=== PATIENT | male | born 1960 | race Caucasian/White ===

== ENCOUNTER 2017-04-27 15:33 | Emergency (ER) | payer MEDICAID ==
[~2017-04-27] VITALS: Ht 175.3 cm; Wt 71.7 kg
[~2017-04-27 15:33] MED LIST: AMLO5TAB2 PO; ASCO500T9 PO; CADE40GE2 TOP; GLIP5TAB13 PO; Metformin Hcl PO; PANT40TA2 PO; RXVAN XX; SITA50TA PO; Silver Sulfadiazine TP; ZINC220C8 PO
[2017-04-27 16:52] LABS: *BILIRUBIN,URIN NEGATIVE (NEGATIVE); *BLOOD, URINE Trace-intact (NEGATIVE); *CLARITY,URINE CLEAR (CLEAR); *COLOR,URINE YELLOW (YELLOW); *KETONES,URINE 3+ (NEGATIVE); *PROTEIN,URINE NEGATIVE (NEGATIVE); *UROBILINOGEN,URINE 0.2 E.U./dl (NORMAL); LEUKOCYTE ESTERASE ,URINE NEGATIVE (NEGATIVE); NITRITE, URINE NEGATIVE (NEGATIVE); PH,URINE 5.5 (5.0-8.0)
[2017-04-27 16:53] LABS: BASOPHILS % (AUTO) 0.4 % (0.0-2.0); EOSINOPHILS # (AUTO) 0.1 K/uL (0.0-0.7); EOSINOPHILS % (AUTO) 1.2 % (0.0-7.0); HEMATOCRIT 47.3 % (40-50); HEMOGLOBIN 16.4 G/DL (14.0-18.0); LYMPHOCYTES # (AUTO) 0.7 K/UL (0.8-4.8); LYMPHOCYTES % (AUTO) 9.7 % (20.5-51.5); MEAN CORPUSCULAR HEMOGLOBIN 28.2 UUG (27.0-31.0); MEAN CORPUSCULAR HGB CONC 35 g/dL (32.0-37.0); MEAN CORPUSCULAR VOLUME 81.1 FL (82.0-92.0); MONOCYTES # (AUTO) 0.3 K/UL (0.1-1.30); MONOCYTES % (AUTO) 4.3 % (0.0-11.0); NEUTROPHILS # (AUTO) 6.3 K/UL (1.8-8.9); NEUTROPHILS % (AUTO) 84.4 % (38.5-71.5); PLATELET COUNT (AUTO) 182 K/UL (150-450); RED BLOOD CELL COUNT(AUTO) 5.83 MIL/UL (4.7-6.1); WHITE BLOOD COUNT (AUTO) 7.4 K/UL (4.0-11.2)
[2017-04-27 16:55] LABS: UGLUCOSE 2+ (NEGATIVE)
[2017-04-27 16:56] LABS: ALANINE AMINOTRANSFERASE 19 U/L (16-63); ALKALINE PHOSPHATASE 72 U/L (50-136); ASPARTATE AMINOTRANSFERASE 13 U/L (15-37); BILIRUBIN,DIRECT 0.2 mg/dL (0.0-0.2); CARBON DIOXIDE 26 mmol/L (21-32); CHLORIDE 102 mmol/L (98-107); POTASSIUM 4.1 mmol/L (3.5-5.1); UREA NITROGEN, BLOOD 12 mg/dL (7-18)
[2017-04-27 16:57] LABS: ETHANOL < 3 MG/DL (0-0)
[2017-04-27 17:02] LABS: ACETAMINOPHEN < 2.0 ug/mL (10-30); GLUCOSE 485 mg/dL (74-106)
[2017-04-27 17:09] LABS: BACTERIA,URINE NONE SEEN /HPF (NONE SEEN); RBC,URINE NONE SEEN /HPF (0-3); SQUAMOUS EPITHELIAL CELL,UR FEW /HPF (NONE SEEN)
[2017-04-27 17:16] LABS: *AMPHETAMINE, URINE NEGATIVE (NEGATIVE); *BARBITURATE, URINE NEGATIVE (NEGATIVE); *CANNABINOID, URINE NEGATIVE (NEGATIVE); *COCCAINE, URINE NEGATIVE (NEGATIVE); *OPIATE, URINE NEGATIVE (NEGATIVE); *PHENCYCLIDINE SCREEN,URINE NEGATIVE (NEGATIVE)
[2017-04-27] MEDS: INSULIN REGULAR, HUMAN 1,000 UNITS/10 ML VIAL SUBCUT ONE (17:16)
[2017-04-27] MEDS ORDERED: INSULIN REGULAR, HUMAN 300 UNIT/3 ML VIAL ONE (17:21)
[2017-04-27 17:40] LABS: THYROID STIMULATING HORMONE 1.064 mIU/mL (0.358-3.740)
--- NOTE | 2017-04-27 17:44 | NUR ---
Medically cleared by Dr Hu. Gabino Shin is here to evaluate patient.
--- NOTE | 2017-04-27 18:33 | NUR ---
Gabino Shin cleared the patient to go home. Patient's girlfriend is at bedside. Patient discharged to home in stable conditon. Written and verbal after care instructions given to patient and girlfriend. Patient and girlfriend verbalized understanding of instructions.
== END 2017-04-27 18:35 | disposition home or self-care (01) ==
LOC: ER 16:30
DX: F32.9 Major depressive disorder, single episode, unspecified (principal); Z88.0 Allergy status to penicillin
CPT/HCPCS: 36415; 70030-TC; 70450; 71010; 80307; 83605; 84443; 85025; 85730; 87040; 87086; 93005; A4663; G0480; G0480-TC; J1815

== ENCOUNTER 2017-05-04 07:27 | Emergency (ER) | payer OTHER ==
[~2017-05-04] VITALS: Ht 175.3 cm; Wt 71.7 kg
[2017-05-04 08:03] LABS: *BLOOD, URINE 3+ (NEGATIVE); *CLARITY,URINE CLOUDY (CLEAR); *COLOR,URINE RED (YELLOW); *KETONES,URINE 4+ (NEGATIVE); LEUKOCYTE ESTERASE ,URINE TRACE (NEGATIVE); NITRITE, URINE NEGATIVE (NEGATIVE); PH,URINE 5.5 (5.0-8.0)
[2017-05-04 08:07] LABS: *BILIRUBIN,URIN 1+ (NEGATIVE); *PROTEIN,URINE 3+ (NEGATIVE); UGLUCOSE 2+ (NEGATIVE)
[2017-05-04 08:12] LABS: BACTERIA,URINE FEW /HPF (NONE SEEN); RBC,URINE TNTC /HPF (0-3); SQUAMOUS EPITHELIAL CELL,UR FEW /HPF (NONE SEEN)
[2017-05-04] MEDS ORDERED: SULFAMETH/TRIMETH 800/160 MG TABLET PO ONE (08:30)
--- NOTE | 2017-05-04 08:34 | NUR ---
Patient discharged to home in stable conditon. Written and verbal after care instructions given. Patient verbalizes understanding of instructions.
[2017-05-04 08:35] VITALS: BP 139/56
[2017-05-04] MEDS ORDERED: SULFAMETH/TRIMETH 800/160 MG TABLET ONE (08:44)
== END 2017-05-04 08:38 | disposition home or self-care (01) ==
LOC: ER 07:32
DX: R31.9 Hematuria, unspecified (principal); Z88.0 Allergy status to penicillin; E11.9 Type 2 diabetes mellitus without complications
CPT/HCPCS: A4663

== ENCOUNTER 2017-05-14 17:27 | Emergency (ER) | payer OTHER ==
[~2017-05-14] VITALS: Ht 180.3 cm; Wt 77.1 kg
[2017-05-14] MEDS ORDERED: MORPHINE SULFATE 2 MG/1 ML DISP.SYRIN IV ONE (17:45)
[2017-05-14] MEDS ORDERED: IV NORMAL SALINE 1000 ML BAG IV ONE ×2 (17:45→20:00)
[2017-05-14 17:47] LABS: *BILIRUBIN,URIN NEGATIVE (NEGATIVE); *BLOOD, URINE 3+ (NEGATIVE); *CLARITY,URINE SLIGHTLY CLOUDY (CLEAR); *COLOR,URINE YELLOW (YELLOW); *KETONES,URINE 1+ (NEGATIVE); *PROTEIN,URINE NEGATIVE (NEGATIVE); LEUKOCYTE ESTERASE ,URINE TRACE (NEGATIVE); NITRITE, URINE NEGATIVE (NEGATIVE)
[2017-05-14] MEDS ORDERED: MORPHINE SULFATE 2 MG/1 ML DISP.SYRIN ONE (18:07)
--- NOTE | 2017-05-14 18:08 | NUR ---
PATIENT WAS SEEN BY MD FOR C/O FREQUENT AND PAINFUL URINATION. IV PLACED ,MEDS GIVEN ORDERED.
[2017-05-14 18:12] LABS: BASOPHILS % (AUTO) 0.1 % (0.0-2.0); EOSINOPHILS # (AUTO) 0.1 K/uL (0.0-0.7); EOSINOPHILS % (AUTO) 0.8 % (0.0-7.0); HEMATOCRIT 49.8 % (40-50); HEMOGLOBIN 16.6 G/DL (14.0-18.0); LYMPHOCYTES % (AUTO) 7.4 % (20.5-51.5); MEAN CORPUSCULAR HEMOGLOBIN 27.8 UUG (27.0-31.0); MEAN CORPUSCULAR HGB CONC 33 g/dL (32.0-37.0); MEAN CORPUSCULAR VOLUME 83.3 FL (82.0-92.0); MONOCYTES # (AUTO) 0.4 K/UL (0.1-1.30); MONOCYTES % (AUTO) 2.7 % (0.0-11.0); NEUTROPHILS # (AUTO) 12.4 K/UL (1.8-8.9); PLATELET COUNT (AUTO) 320 K/UL (150-450); RED BLOOD CELL COUNT(AUTO) 5.98 MIL/UL (4.7-6.1); WHITE BLOOD COUNT (AUTO) 13.9 K/UL (4.0-11.2)
[2017-05-14 18:14] LABS: RBC,URINE 20-50 /HPF (0-3); WBC,URINE 20-50 /HPF (0-3)
[2017-05-14 18:15] LABS: BACTERIA,URINE FEW /HPF (NONE SEEN); SQUAMOUS EPITHELIAL CELL,UR FEW /HPF (NONE SEEN)
[2017-05-14] MEDS ORDERED: CIPROFLOXACIN HCL 250 MG TABLET PO ONE (18:15)
[2017-05-14 18:16] LABS: CREATININE 1.1 mg/dL (0.6-1.3); POTASSIUM 4.7 mmol/L (3.5-5.1)
[2017-05-14 18:20] LABS: UGLUCOSE 2+ (NEGATIVE)
[2017-05-14] MEDS ORDERED: INSULIN REGULAR, HUMAN 1,000 UNITS/10 ML VIAL SUBCUT ONE (18:30)
[2017-05-14] MEDS ORDERED: CIPROFLOXACIN HCL 250 MG TABLET ONE (18:36)
[2017-05-14] MEDS ORDERED: INSULIN REGULAR, HUMAN 300 UNIT/3 ML VIAL ONE (18:44)
--- NOTE | 2017-05-14 19:01 | NUR ---
IV INFILTRATED. PATIENT HAS MOVED FROM HIS GURNEY TO THE BATHROOM AT LEAST 10 TIMES SINCE HIS ARRIVAL. THE TAPE COVERING THE IV WAS LOOSE AND THE CATHETER HAD MOVED UP. I REMOVED THE IV, CATHETER TIP WAS INTACT, PRESSURE APPLIED ,DRESSING APPLIED. PATIENT DENIES PAIN. STATES HE HAS PAIN ON URINATION AND FREQUENCY.
--- NOTE | 2017-05-14 19:10 | NUR ---
PATIENT RECEIVED ABOUT 300 CC OF THE 1000CC NS ORDERED. I NOTIFIED DR SAMPSON. PT STATES HE CAN EASILY DRINK OVER [address] SAMPSON STATED THAT WAS "OK". I GAVE HIM ABOUT 1L OF WATER TO DRINK.
--- NOTE | 2017-05-14 19:16 | NUR ---
PATIENT DRANK ABOUT 500 CC OF THE WATER I GAVE HIM
--- NOTE | 2017-05-14 19:21 | NUR ---
Received report from DIAEN Sawyer. Assumed care of pt at this time. Pt in bathroom.
--- NOTE | 2017-05-14 19:40 | NUR ---
Blood sugar improving. MD aware. Pt stable for discharge per MD. Attempted to discharge pt. Pt voicing concerns about abd pain. MD notified of pts pain complaints and vss. Awaiting further orders.
[2017-05-14] MEDS ORDERED: PROMETHAZINE HCL 25 MG/1 ML VIAL IM ONE (19:45)
[2017-05-14] MEDS ORDERED: HYDROMORPHONE 1 MG/1 ML DISP.SYRIN IM ONE (19:45)
--- NOTE | 2017-05-14 20:02 | NUR ---
Pt medicated for discomfort, will monitor for effects of medication.
[2017-05-14] MEDS ORDERED: HYDROMORPHONE 1 MG/1 ML DISP.SYRIN ONE (20:04)
[2017-05-14] MEDS ORDERED: PROMETHAZINE HCL 25 MG/1 ML VIAL ONE (20:05)
--- NOTE | 2017-05-14 20:40 | NUR ---
Pt stable for discharge per MD. Pt given ACI. Pt verbalized understanding of dc instructions. Pt ambulated out of er with steady gait to to wait for ride home with father
[2017-05-14 20:42] VITALS: BP 155/95
== END 2017-05-14 20:42 | disposition home or self-care (01) ==
LOC: ER 17:30
DX: E11.9 Type 2 diabetes mellitus without complications (principal); N39.0 Urinary tract infection, site not specified; Z88.0 Allergy status to penicillin
CPT/HCPCS: 36415; 83605; 85025; 87040; 87077; 87086; A4663; J1170; J1815; J2270; J2550; J7030

== ENCOUNTER 2017-05-23 18:36 | Inpatient (IN) | payer OTHER ==
[~2017-05-23] VITALS: Ht 172.7 cm; Wt 75.3 kg
[2017-05-23] MEDS ORDERED: METF500T4 PO (18:42)
[2017-05-23] MEDS ORDERED: IV NORMAL SALINE 1000 ML BAG IV ONE (19:00)
[2017-05-23] MEDS ORDERED: LIDOCAINE 2% (UROJET) 10 ML JELLY MM ONE ×2 (19:00→19:09)
[2017-05-23] MEDS ORDERED: ONDANSETRON 4 MG/2 ML VIAL IV ONE (19:00)
[2017-05-23 19:11] LABS: *BILIRUBIN,URIN NEGATIVE (NEGATIVE); *BLOOD, URINE Trace-intact (NEGATIVE); *COLOR,URINE YELLOW (YELLOW); *KETONES,URINE NEGATIVE (NEGATIVE); *PROTEIN,URINE NEGATIVE (NEGATIVE); *UROBILINOGEN,URINE 0.2 E.U./dl (NORMAL); LEUKOCYTE ESTERASE ,URINE TRACE (NEGATIVE); NITRITE, URINE NEGATIVE (NEGATIVE); PH,URINE 5.5 (5.0-8.0)
[2017-05-23] MEDS ORDERED: HYDROMORPHONE 1 MG/1 ML DISP.SYRIN IV ONE (19:15)
--- NOTE | 2017-05-23 19:15 | NUR ---
REPORT RECEIVED FROM DAYSHIFT NURSE, PT RESTING IN BED AWAKE, ORIENTED X 3, NO RESP DISTRESS NOTED OR REPORTED UPON ASSESSMENT... WILL MONITOR FOR SAFETY, PAIN , AND COMFORT....
[2017-05-23 19:21] LABS: *CLARITY,URINE SLIGHTLY HAZY (CLEAR); UGLUCOSE 2+ (NEGATIVE)
[2017-05-23 19:22] LABS: BASOPHILS % (AUTO) 0.2 % (0.0-2.0); EOSINOPHILS % (AUTO) 0.4 % (0.0-7.0); HEMATOCRIT 41.3 % (40-50); LYMPHOCYTES # (AUTO) 0.2 K/UL (0.8-4.8); LYMPHOCYTES % (AUTO) 2.2 % (20.5-51.5); MEAN CORPUSCULAR HEMOGLOBIN 27.4 UUG (27.0-31.0); MEAN CORPUSCULAR HGB CONC 34 g/dL (32.0-37.0); MONOCYTES # (AUTO) 0.5 K/UL (0.1-1.30); MONOCYTES % (AUTO) 4.2 % (0.0-11.0); NEUTROPHILS # (AUTO) 10.2 K/UL (1.8-8.9); PLATELET COUNT (AUTO) 218 K/UL (150-450); RED BLOOD CELL COUNT(AUTO) 5.11 MIL/UL (4.7-6.1); WHITE BLOOD COUNT (AUTO) 10.9 K/UL (4.0-11.2)
[2017-05-23 19:23] LABS: MUCUS,URINE MODERATE /LPF (0-FEW); WBC,URINE 20-50 /HPF (0-3)
[2017-05-23 19:29] LABS: MAGNESIUM 1.7 mg/dL (1.8-2.4); PHOSPHOROUS 5.8 mg/dL (2.5-4.9)
[2017-05-23] MEDS ORDERED: HYDROMORPHONE 1 MG/1 ML DISP.SYRIN ONE (19:30)
[2017-05-23] MEDS ORDERED: ONDANSETRON 4 MG/2 ML VIAL ONE ×2 (19:30→23:48)
[2017-05-23 19:35] LABS: BAND % (MANUAL) 9 % (0-10); LYMPHOCYTES % (MANUAL) 2 % (20-40); MONOCYTES % (MANUAL) 4 % (2-10); NEUTROPHILS % (MANUAL) 85 % (42-75)
[2017-05-23 19:40] LABS: BILIRUBIN,DIRECT 0.3 mg/dL (0.0-0.2); BILIRUBIN,TOTAL 1.3 mg/dL (0.2-1.0); POTASSIUM 4.7 mmol/L (3.5-5.1); TOTAL PROTEIN, SERUM 6.7 g/dL (6.4-8.2)
[2017-05-23 19:42] LABS: CREATININE 7.9 mg/dL (0.6-1.3)
[2017-05-23] MEDS ORDERED: CEFTRIAXONE 1 G in IV DEXTROSE 5% 50 ML IV ONE (20:15)
[2017-05-23] MEDS ORDERED: INSULIN REGULAR, HUMAN 1,000 UNITS/10 ML VIAL IV ONE (20:15)
[2017-05-23] MEDS ORDERED: INSULIN REGULAR, HUMAN 300 UNIT/3 ML VIAL ONE (20:50)
[2017-05-23] MEDS ORDERED: CEFTRIAXONE 1 G VIAL ONE (20:50)
--- NOTE | 2017-05-23 21:07 | NUR ---
Pt. admitted to Telemetry , under care of Dr. Moreira, Belongs List completed, pt alert, oriented x 3, no resp distress noted or reported upon transfer assessment... family remains (father and ) at bedside....
[2017-05-23 21:25] VITALS: BP 143/94
--- NOTE | 2017-05-23 21:25 | NUR ---
RECEIVED PATIENT FROM ER VIA GURNEY, ACCOMPANIED BY AND FATHER. PT IS ALERT, RESPONSIVE, COOPERATIVE, PLEASANT, IN NO ACUTE DISTRESS. DX: ACUTE RENAL FAILURE UNDER THE CARE OF DR. HOU. ADMISSION PROCESS, BELONGING LIST, CARE PLAN INITIATED. CALLED MD FOR ADMISSION ORDERS. SAFETY MEASURES IN PLACE, CALL LIGHT WITHIN REACH, BED ALARM ON. WILL CONTINUE TO MONITOR.
[2017-05-23] MEDS ORDERED: MORPHINE SULFATE 2 MG/1 ML DISP.SYRIN IV PRN (23:30)
[2017-05-23] MEDS: CEFTRIAXONE 1 G in IV DEXTROSE 5% 50 ML IV SCH ×2 (23:30→23:34)
--- NOTE | 2017-05-23 23:30 | NUR ---
CEFTRIAXONE 1G ALREADY GIVEN IN ER AT 2049. SCHEDULED 2329 NOT ADMINISTERED. MACHINE SCALLOP CUTTER AND HEARING SPECIALIST AWARE.
[2017-05-23] MEDS: ONDANSETRON 4 MG/2 ML VIAL IV PRN (23:42)
[2017-05-24] VITALS: BP 135/82
[2017-05-24] MEDS: IV 1/2NS 1000 ML 1,000 ML IV PRN ×3 (00:01→20:53)
[2017-05-24] MEDS ORDERED: TAMSULOSIN HCL 0.4 MG CAP.SR.24H ONE (00:33)
[2017-05-24] MEDS ORDERED: METOPROLOL TARTRATE 25 MG TABLET ONE (00:33)
[2017-05-24] MEDS: METOPROLOL TARTRATE 25 MG TABLET PO SCH ×3 (00:34→21:00)
[2017-05-24] MEDS: TAMSULOSIN HCL 0.4 MG CAP.SR.24H PO SCH ×2 (00:34→20:59)
[2017-05-24] MEDS: INSULIN DETEMIR 300 UNIT/3 ML CARTRIDGE SQ SCH ×2 (00:37→21:57)
[2017-05-24 04:00] VITALS: BP 126/81
--- NOTE | 2017-05-24 05:48 | NUR ---
PT SLEPT INTERMITTENTLY, IN NO ACUTE DISTRESS. MCGILL CATH INTACT/PATENT DRAINING YELLOW URINE. PT NOTED TO HAVE HICCUPS, NO C/O OF DISCOMFORT OR PAIN. WILL CONTINUE TO MONITOR.
[2017-05-24] MEDS: ONDANSETRON 4 MG/2 ML VIAL IV PRN ×3 (06:04→21:34)
[2017-05-24] MEDS: HYDROCODONE/APAP 5-325MG TABLET PO PRN ×2 (06:05→14:34)
[2017-05-24] MEDS ORDERED: HYDROCODONE/APAP 5-325MG TABLET ONE (06:10)
[2017-05-24] MEDS ORDERED: ONDANSETRON 4 MG/2 ML VIAL ONE (06:11)
--- NOTE | 2017-05-24 06:48 | NUR ---
PT C/O OF PAIN 01/26-02/26 ABDOMEN, ADMINISTERED PAIN MED ORDERED. PT ALSO C/O OF NAUSEA, ADMINISTERED ZOFRAN ORDERED. WILL CONTINUE TO MONITOR.
--- NOTE | 2017-05-24 06:52 | NUR ---
PT ON TELE SINUS TACHY, IN NO ACUTE DISTRESS, WILL CONTINUE TO MONITOR.
[2017-05-24 06:54] LABS: BASOPHILS % (AUTO) 0.2 % (0.0-2.0); EOSINOPHILS # (AUTO) 0.1 K/uL (0.0-0.7); EOSINOPHILS % (AUTO) 0.8 % (0.0-7.0); HEMATOCRIT 37.5 % (40-50); HEMOGLOBIN 12.6 G/DL (14.0-18.0); LYMPHOCYTES # (AUTO) 0.3 K/UL (0.8-4.8); LYMPHOCYTES % (AUTO) 3.4 % (20.5-51.5); MEAN CORPUSCULAR HEMOGLOBIN 27.4 UUG (27.0-31.0); MEAN CORPUSCULAR HGB CONC 34 g/dL (32.0-37.0); MEAN CORPUSCULAR VOLUME 81.4 FL (82.0-92.0); MONOCYTES # (AUTO) 0.5 K/UL (0.1-1.30); MONOCYTES % (AUTO) 5.3 % (0.0-11.0); NEUTROPHILS # (AUTO) 7.6 K/UL (1.8-8.9); NEUTROPHILS % (AUTO) 90.3 % (38.5-71.5); PLATELET COUNT (AUTO) 206 K/UL (150-450); RED BLOOD CELL COUNT(AUTO) 4.61 MIL/UL (4.7-6.1); WHITE BLOOD COUNT (AUTO) 8.5 K/UL (4.0-11.2)
[2017-05-24] MEDS ORDERED: BLOOD SUGAR DIAGNOSTIC 1 EACH STRIP VI SCH ×2 (07:30→11:30)
[2017-05-24 07:32] LABS: BILIRUBIN,TOTAL 0.8 mg/dL (0.2-1.0); CREATININE 1.9 mg/dL (0.6-1.3); MAGNESIUM 1.5 mg/dL (1.8-2.4); PHOSPHOROUS 2.9 mg/dL (2.5-4.9); POTASSIUM 3.8 mmol/L (3.5-5.1); TOTAL PROTEIN, SERUM 5.5 g/dL (6.4-8.2)
[2017-05-24 07:51] LABS: THYROID STIMULATING HORMONE 0.403 mIU/mL (0.358-3.740)
[2017-05-24] MEDS: PANTOPRAZOLE SODIUM 40 MG TABLET.DR PO SCH (08:24)
--- NOTE | 2017-05-24 08:41 | NUR ---
PATIENT IS IN BED RESTING. NO S/S OF DISTRESS NOTED. DENIED PAIN FOR THE MOMENT. F/C INTACT, URINATING FINE YELLOW AND CLEAR. CALLED DR. HOU FOR SLIDING SCALE ORDER, LAST BS 207. IT WILL BE COVERAGE SOON THE ORDER IS VERIFY. SAFETY AND COMFORT PROVIDED. WILL CONTINUE MONITORING.
[2017-05-24] MEDS ORDERED: INSULIN REGULAR, HUMAN 300 UNITS/3 ML VIAL SQ PRN (08:45)
[2017-05-24] MEDS ORDERED: DEXTROSE 50% 50 ML DISP.SYRIN IV PRN ×2 (08:45→10:15)
[2017-05-24] MEDS ORDERED: INSULIN REGULAR, HUMAN 300 UNIT/3 ML VIAL SQ PRN (08:45)
[2017-05-24] MEDS ORDERED: MAGNESIUM SULFATE/D5W 100 ML IV SCH (10:15)
[2017-05-24] MEDS: FERROUS SULFATE 325 MG TABEC PO SCH (11:28)
[2017-05-24] MEDS: INSULIN REGULAR, HUMAN 300 UNIT/3 ML VIAL SQ PRN ×2 (11:35→16:53)
[2017-05-24] MEDS: BLOOD SUGAR DIAGNOSTIC 1 EACH STRIP VI SCH ×3 (11:39→21:47)
[2017-05-24 12:12] VITALS: BP 132/87
[2017-05-24] MEDS ORDERED: MAGNESIUM HYDROXIDE 30 ML LIQUID UDC PO ONE (13:30)
[2017-05-24] MEDS: MAGNESIUM HYDROXIDE 30 ML LIQUID UDC PO PRN (13:31)
[2017-05-24] MEDS: DOCUSATE SODIUM 100 MG CAPSULE PO SCH ×2 (13:31→20:59)
[2017-05-24 16:12] VITALS: BP 127/76
--- NOTE | 2017-05-24 17:56 | NUR ---
Patient been in bed resting, sleeping intermittently. C/O of abdominal pain and nausea. Medicated as ordered. it was effective. BS control during the day. Iv still intact. FC on place, draining well. Given Colace and milk of magnesium as ordered for constipation, no effective. No bowel movement. Safety and comfort provided. Will continue monitoring
[2017-05-24 19:00] VITALS: BP 149/87
[2017-05-24] MEDS: ACETAMINOPHEN 325 MG TABLET PO PRN (20:59)
--- NOTE | 2017-05-24 20:59 | NUR ---
PT NOTED WITH ELEVATED TEMP OF 102.1, PT REMAINS ALERT AND RESPONSIVE. RESP EVEN AND UNLABORED. NO ACUTE DISTRESS. COOLING MEASURES RENDERED. TYLENOL GIVEN ORDERED. MD DOMÍNGUEZ CALLED AND MADE AWARE WITH NEW ORDERS, CARRIED OUT.
[2017-05-24] MEDS ORDERED: DOCUSATE SODIUM 100 MG CAPSULE PO SCH ×2 (21:00)
[2017-05-24 21:18] LABS: *BILIRUBIN,URIN NEGATIVE (NEGATIVE); *BLOOD, URINE 2+ (NEGATIVE); *CLARITY,URINE CLEAR (CLEAR); *COLOR,URINE YELLOW (YELLOW); *KETONES,URINE TRACE (NEGATIVE); *PROTEIN,URINE 2+ (NEGATIVE); *UROBILINOGEN,URINE 0.2 E.U./dl (NORMAL); LEUKOCYTE ESTERASE ,URINE 1+ (NEGATIVE); NITRITE, URINE NEGATIVE (NEGATIVE); PH,URINE 5.5 (5.0-8.0); UGLUCOSE NEGATIVE (NEGATIVE)
--- NOTE | 2017-05-24 21:18 | NUR ---
CLINICAL PHARMACY NOTE:GENTAMICIN DOSING Request for gentamicin dosing on 57 y/o male 5'9" 166lbs for suspected infection Temp 99.8 F BUN 25 Scr 1.9 WBC 9.5 Urine culture immature growth start gentamicin 100mg ivpb q12h estimated peak 6.6 trough 1.1. Will order peak and trough levels around 4th dose. will continue to monitor
[2017-05-24 21:26] LABS: WBC,URINE 20-50 /HPF (0-3)
[2017-05-24 21:27] LABS: RBC,URINE 20-50 /HPF (0-3)
[2017-05-24 21:30] LABS: YEAST,URINE FEW /HPF (NONE SEEN)
[2017-05-24] MEDS: CEFTRIAXONE 1 G in IV DEXTROSE 5% 50 ML IV SCH (21:34)
[2017-05-24] MEDS: GENTAMICIN SULFATE INJ 100 MG in IV DEXTROSE 5% 100 ML IV SCH (22:00)
--- NOTE | 2017-05-24 22:00 | NUR ---
PT IN BED, ALERT AND RESPONSIVE. RESP IS EVEN AND UNLABORED. NO SOB. NO ACUTE DISTRESS. RES WITH ONGOING COOLING MEASURES. VSS WITH TEMP OF 99.8. IV FLUIDS INFUSING WELL. IV IS PATENT AND INTACT. MCGILL CATHETER DRAINING WELL VIA GRAVITY. CALL LIGHT WITH IN REACH. WILL CONT TO MONITOR.
[2017-05-24 23:26] LABS: *CREATININE,URINE 94.6 mg/dL (30-125); *URINE TOTAL PROTEIN RANDOM 63.7 mg/dL (<150/24HR)
--- NOTE | 2017-05-25 01:00 | NUR ---
RECEIVED SBAR REPORT FROM LUCIO Alonzo & MARCELLA Akhtar/RN TO CONTINUE CARE,PT'S SLEEPING ON BED,UNLABORED BREATHING NOTED.S/P FEVER IN THE EVENING(05/24/17); HAD ORDERS AND ALREADY CARRIED OUT FOR LAB TEST(SEE RECORD).F/C TO GRAVITY WAS DRAINAGE WELL NOTED.IVF'S INFUSED WELL,NO INFILTRATION AT THE SITE.KEPT COMFORT.CALL-LIGHT WITHIN REACH.
--- NOTE | 2017-05-25 02:14 | NUR ---
PT IS ALERT AND RESPONSIVE. RESP IS EVEN AND UNLABORED. NO SOB. PT IS RESTING IN BED COMFORTABLY. IV NS INFUSING WELL. IV IS PATENT AND INTACT. PT WITH FC DRAINING WELL VIA GRAVITY. CALL LIGHT IS C IN REACH, WILL CONT TO MONITOR.
[2017-05-25] MEDS: HYDROCODONE/APAP 5-325MG TABLET PO PRN ×4 (03:59→20:29)
[2017-05-25] MEDS: ONDANSETRON 4 MG/2 ML VIAL IV PRN ×3 (03:59→20:29)
[2017-05-25 04:17] VITALS: BP 116/73
--- NOTE | 2017-05-25 06:10 | NUR ---
PT'S COMFORTABLE ON BED AT THIS TIME;DENIED OF PAIN OR ANY DISCOMFORT.STILL C/O MILD WEAKNESS;EDUCATED TO PT,WILL HAVE PT TO COME TO SEE PT MD'S ORDER;HE VERBALIZED UNDERSTANDING AND COOPERATIVE W/ASSISTANCE NOTED.KEPT COMFORT.CALL-LIGHT WITHIN REACH.
[2017-05-25] MEDS: PANTOPRAZOLE SODIUM 40 MG TABLET.DR PO SCH (06:19)
[2017-05-25] MEDS: BLOOD SUGAR DIAGNOSTIC 1 EACH STRIP VI SCH ×4 (06:30→20:49)
[2017-05-25 06:45] LABS: BASOPHILS % (AUTO) 0.1 % (0.0-2.0); EOSINOPHILS # (AUTO) 0.1 K/uL (0.0-0.7); EOSINOPHILS % (AUTO) 0.5 % (0.0-7.0); HEMATOCRIT 34.6 % (40-50); LYMPHOCYTES # (AUTO) 0.4 K/UL (0.8-4.8); LYMPHOCYTES % (AUTO) 4.2 % (20.5-51.5); MEAN CORPUSCULAR HGB CONC 35 g/dL (32.0-37.0); MEAN CORPUSCULAR VOLUME 80.7 FL (82.0-92.0); MONOCYTES # (AUTO) 0.9 K/UL (0.1-1.30); MONOCYTES % (AUTO) 8.7 % (0.0-11.0); NEUTROPHILS % (AUTO) 86.5 % (38.5-71.5); PLATELET COUNT (AUTO) 179 K/UL (150-450); RED BLOOD CELL COUNT(AUTO) 4.29 MIL/UL (4.7-6.1); WHITE BLOOD COUNT (AUTO) 10.4 K/UL (4.0-11.2)
[2017-05-25 07:13] LABS: BILIRUBIN,TOTAL 0.9 mg/dL (0.2-1.0); CREATININE 0.8 mg/dL (0.6-1.3); MAGNESIUM 1.6 mg/dL (1.8-2.4); PHOSPHOROUS 1.7 mg/dL (2.5-4.9); POTASSIUM 3.7 mmol/L (3.5-5.1)
[2017-05-25] MEDS: GENTAMICIN SULFATE INJ 100 MG in IV DEXTROSE 5% 100 ML IV SCH (08:03)
[2017-05-25] MEDS: IV 1/2NS 1000 ML 1,000 ML IV PRN ×2 (08:04→20:12)
[2017-05-25] MEDS: DOCUSATE SODIUM 100 MG CAPSULE PO SCH ×2 (08:04→20:30)
[2017-05-25] MEDS: FERROUS SULFATE 325 MG TABEC PO SCH (08:04)
[2017-05-25] MEDS: METOPROLOL TARTRATE 25 MG TABLET PO SCH ×2 (08:07→20:30)
[2017-05-25] MEDS ORDERED: MAGNESIUM OXIDE 400 MG TABLET PO ONE (10:00)
[2017-05-25] MEDS ORDERED: NEUTRA PHOS PACKET PO ONE (10:00)
[2017-05-25 10:03] LABS: BAND % (MANUAL) 15 % (0-10); LYMPHOCYTES % (MANUAL) 3 % (20-40); MONOCYTES % (MANUAL) 12 % (2-10); NEUTROPHILS % (MANUAL) 70 % (42-75)
[2017-05-25 11:25] VITALS: BP 121/75
[2017-05-25] MEDS ORDERED: MORPHINE SULFATE 4 MG/1 ML DISP.SYRIN IV PRN (15:00)
[2017-05-25 15:15] VITALS: BP 107/74
--- NOTE | 2017-05-25 15:40 | NUR ---
Clinical pharmacy note-Gentamicin per pharmacy Subjective: To continue Gentamicin dosing on this patient for suspected infection Objective: BUN 10 Scr 0.8 WBC 10.4 Temp 99.2 Assessment/Plan: Will continue Gentamicin 100mg IV every 12 hrs(second dose was given today at 0803) and draw peak and trough by 4th dose(ordered by tomorrow 0900 dose). Expected peak 6.6 and trougn 1.5. Will follow level to adjust the dose if needed. Will follow daily.
[2017-05-25] MEDS: INSULIN REGULAR, HUMAN 300 UNIT/3 ML VIAL SQ PRN (16:41)
--- NOTE | 2017-05-25 18:19 | NUR ---
CLINICAL PHARMACY NOTE:VANCOMYCIN DOSING Request for vancomycin dosing on 57 y/o male 5'9" 269lb for UTI/pyelonephritis Temp 99.2F BUN 10 Scr 0.8 WBC 10.4 Bands 15 also on Rocephin Urine culture 50k Staph aureus Start Vancomycin 1250mg ivpb q12h estimated trough 14. Trough level ordered prior to 4th dose 05/27/17 0830. Will continue to monitor
--- NOTE | 2017-05-25 18:50 | NUR ---
PATIENT BEEN RESTING DURING THE DAY, SLEEPING INTERMITTENTLY. C/O OF ABDOMINAL PAIN AND NAUSEA, MEDICATED ORDERED. CHRONIC HICCUPS WERE NOTED, STATED THAT HE HAVE NEVER HAVE THOSE BEFORE. COOPERATIVE WITH PLAN OF CARE. F/C DRAINING WELL, YELLOW CLEAR URINE. IV STILL INTACT. BS CONTROLLED. SAFETY COMFORT PROVIDED DURING THE DAY. WILL CONTINUE MONITORING.
[2017-05-25 20:00] VITALS: BP 124/91
[2017-05-25] MEDS: CEFTRIAXONE 1 G in IV DEXTROSE 5% 50 ML IV SCH (20:29)
[2017-05-25] MEDS: LACTOBACILLUS RHAMNOSUS GG 1 EACH CAPSULE PO SCH (20:30)
[2017-05-25] MEDS: TAMSULOSIN HCL 0.4 MG CAP.SR.24H PO SCH (20:30)
[2017-05-25] MEDS: INSULIN DETEMIR 300 UNIT/3 ML CARTRIDGE SQ SCH (20:42)
[2017-05-25] MEDS: INSULIN REGULAR, HUMAN 300 UNITS/3 ML VIAL SQ PRN (20:46)
[2017-05-25] MEDS: VANCOMYCIN IV 1,250 MG in IV DEXTROSE 5% 500 ML IV SCH (21:33)
[2017-05-26] MEDS: ACETAMINOPHEN 325 MG TABLET PO PRN (00:31)
[2017-05-26] MEDS: HYDROCODONE/APAP 5-325MG TABLET PO PRN ×2 (02:23→09:56)
[2017-05-26] MEDS: ONDANSETRON 4 MG/2 ML VIAL IV PRN ×3 (02:23→20:56)
--- NOTE | 2017-05-26 06:00 | NUR ---
PT SLEPT INTERMITTENTLY, IN NO ACUTE DISTRESS. PAIN/NAUSEA MANAGEMENT ORDERED. ACCUCHECKS ORDERED, NO S/S OF HYPO/HYPERGLYCEMIA NOTED. ANTIBIOTICS IV ADMINISTERED ORDERED, NO ADVERSE REACTION NOTED. IVF RUNNING, NO INFILTRATION NOTED. MCGILL CATH PATENT/INTACT, DRAINING YELLOW URINE, NO C/O OF URINARY DISCOMFORT. CALL LIGHT WITHIN REACH, BED ALARM ON. WILL CONTINUE TO MONITOR.
[2017-05-26] MEDS: PANTOPRAZOLE SODIUM 40 MG TABLET.DR PO SCH (06:13)
[2017-05-26] MEDS: BLOOD SUGAR DIAGNOSTIC 1 EACH STRIP VI SCH ×4 (06:33→21:13)
[2017-05-26 06:47] LABS: BASOPHILS % (AUTO) 0.5 % (0.0-2.0); EOSINOPHILS # (AUTO) 0.3 K/uL (0.0-0.7); EOSINOPHILS % (AUTO) 2.7 % (0.0-7.0); HEMATOCRIT 37.7 % (40-50); HEMOGLOBIN 12.7 G/DL (14.0-18.0); LYMPHOCYTES # (AUTO) 1.1 K/UL (0.8-4.8); LYMPHOCYTES % (AUTO) 11.1 % (20.5-51.5); MEAN CORPUSCULAR HEMOGLOBIN 27.1 UUG (27.0-31.0); MEAN CORPUSCULAR HGB CONC 34 g/dL (32.0-37.0); MEAN CORPUSCULAR VOLUME 80.8 FL (82.0-92.0); MONOCYTES % (AUTO) 10.5 % (0.0-11.0); NEUTROPHILS # (AUTO) 7.1 K/UL (1.8-8.9); NEUTROPHILS % (AUTO) 75.2 % (38.5-71.5); PLATELET COUNT (AUTO) 179 K/UL (150-450); RED BLOOD CELL COUNT(AUTO) 4.67 MIL/UL (4.7-6.1); WHITE BLOOD COUNT (AUTO) 9.5 K/UL (4.0-11.2)
[2017-05-26 07:04] LABS: CREATININE 0.9 mg/dL (0.6-1.3); MAGNESIUM 1.8 mg/dL (1.8-2.4); PHOSPHOROUS 2.5 mg/dL (2.5-4.9); POTASSIUM 3.6 mmol/L (3.5-5.1)
[2017-05-26] MEDS: INSULIN REGULAR, HUMAN 300 UNIT/3 ML VIAL SQ PRN ×2 (07:52→11:49)
[2017-05-26] MEDS: LACTOBACILLUS RHAMNOSUS GG 1 EACH CAPSULE PO SCH ×2 (08:26→20:55)
[2017-05-26] MEDS: DOCUSATE SODIUM 100 MG CAPSULE PO SCH ×2 (08:26→20:55)
[2017-05-26] MEDS: FERROUS SULFATE 325 MG TABEC PO SCH (08:26)
[2017-05-26] MEDS: METOPROLOL TARTRATE 25 MG TABLET PO SCH ×2 (08:30→20:55)
[2017-05-26] MEDS: VANCOMYCIN IV 1,250 MG in IV DEXTROSE 5% 500 ML IV SCH ×2 (09:33→20:56)
[2017-05-26] MEDS: IV 1/2NS 1000 ML 1,000 ML IV PRN (09:35)
[2017-05-26] MEDS: chlorproMAZINE 25 MG TABLET PO SCH ×3 (10:51→16:53)
--- NOTE | 2017-05-26 12:00 | NUR ---
PATIENT IN BED RESTING. NO S/S OF DISTRESS NOTED. C/O OF ABDOMINAL PAIN AND NAUSEA AND CONTINUE HICCUPS. MEDICATED ORDERED. F/C WAS DC ORDERED, 1100 CC WERE REMOVED. MONITOR UO FOR 6-8 HRS FOR ANY URINARY RETENTION. URINAL AT THE BEDSIDE. SAFETY AND COMFORT PROVIDED. WILL CONTINUE MONITORING.
[2017-05-26 12:12] VITALS: BP 103/69
[2017-05-26] MEDS ORDERED: BISACODYL 10 MG SUPP.RECT RC PRN (13:45)
[2017-05-26] MEDS ORDERED: MAGNESIUM HYDROXIDE 30 ML LIQUID UDC PO ONE (13:45)
--- NOTE | 2017-05-26 15:00 | NUR ---
CLINICAL PHARMACY NOTE:VANCOMYCIN DOSING To continue vancomycin dosing on 57 y/o male 5'9" 269lb for UTI/pyelonephritis Temp 98.2F BUN 7 Scr 0.9 WBC 9.5 also on Rocephin Urine culture 50k Staph aureus Continue Vancomycin 1250mg ivpb q12h estimated trough 14. Trough level ordered prior to 4th dose 05/27/17 0830. Will continue to monitor
[2017-05-26 16:14] VITALS: BP 102/75
[2017-05-26] MEDS: INSULIN REGULAR, HUMAN 300 UNITS/3 ML VIAL SQ PRN ×2 (16:52→21:17)
--- NOTE | 2017-05-26 18:58 | NUR ---
BLADDER SCANNER DONE 590CC, DISTENDED ABDOMEN. NOTIFIED KUNAL DAVE. NEW MCGILL WAS INSERTED ORDERED, WELL TOLERATED, 1200 CC DRAINED. PATIENT NOW IS IN BED RESTING WATCHING TV. NO C/O OF HICCUPS, MEDICATION WAS EFFECTIVE. NEW IV WAS INSERTED. SAFETY AND COMFORT PROVIDED. WILL CONTINUE MONITORING.
[2017-05-26 20:00] VITALS: BP 108/73
[2017-05-26] MEDS: TAMSULOSIN HCL 0.4 MG CAP.SR.24H PO SCH (20:55)
[2017-05-26] MEDS: INSULIN DETEMIR 300 UNIT/3 ML CARTRIDGE SQ SCH (21:18)
[2017-05-27] MEDS: ACETAMINOPHEN 325 MG TABLET PO PRN ×2 (03:45→22:14)
[2017-05-27 05:22] VITALS: BP 108/75
[2017-05-27] MEDS: PANTOPRAZOLE SODIUM 40 MG TABLET.DR PO SCH (05:48)
[2017-05-27] MEDS: IV 1/2NS 1000 ML 1,000 ML IV PRN ×2 (06:02→22:19)
--- NOTE | 2017-05-27 06:35 | NUR ---
PT CONTINUE WITH IV FLUIDS,ANTIBIOTICS, MCGILL DRAINING WELL 2500 CC ALL NIGHT,GIVEN MORPHINE X1 AND TYLENOLX1 FOR ABDOMINAL PAIN AND HEADACHE,STILL NO BM, PT STATED HE PASS GAS BUT STILL POOR BS. WILL CONTINUE TO MONITOR,CALL LIGHT AT REACHED.
[2017-05-27] MEDS: BLOOD SUGAR DIAGNOSTIC 1 EACH STRIP VI SCH ×4 (07:37→21:02)
[2017-05-27] MEDS: chlorproMAZINE 25 MG TABLET PO SCH ×3 (08:36→16:53)
[2017-05-27] MEDS: LACTOBACILLUS RHAMNOSUS GG 1 EACH CAPSULE PO SCH ×2 (08:36→20:57)
[2017-05-27] MEDS: FERROUS SULFATE 325 MG TABEC PO SCH (08:36)
[2017-05-27] MEDS: DOCUSATE SODIUM 100 MG CAPSULE PO SCH ×2 (08:37→20:57)
[2017-05-27] MEDS: METOPROLOL TARTRATE 25 MG TABLET PO SCH ×2 (08:37→20:58)
[2017-05-27] MEDS: MAGNESIUM HYDROXIDE 30 ML LIQUID UDC PO PRN (08:38)
[2017-05-27 09:00] LABS: BILIRUBIN,TOTAL 0.7 mg/dL (0.2-1.0); CREATININE 0.8 mg/dL (0.6-1.3); MAGNESIUM 1.9 mg/dL (1.8-2.4); PHOSPHOROUS 2.8 mg/dL (2.5-4.9); POTASSIUM 3.5 mmol/L (3.5-5.1); TOTAL PROTEIN, SERUM 5.5 g/dL (6.4-8.2)
[2017-05-27 09:20] LABS: BASOPHILS % (AUTO) 0.3 % (0.0-2.0); EOSINOPHILS # (AUTO) 0.3 K/uL (0.0-0.7); EOSINOPHILS % (AUTO) 3.8 % (0.0-7.0); HEMOGLOBIN 12.6 G/DL (14.0-18.0); LYMPHOCYTES # (AUTO) 1.5 K/UL (0.8-4.8); MEAN CORPUSCULAR HEMOGLOBIN 27.7 UUG (27.0-31.0); MEAN CORPUSCULAR HGB CONC 34 g/dL (32.0-37.0); MEAN CORPUSCULAR VOLUME 81.6 FL (82.0-92.0); MONOCYTES # (AUTO) 0.7 K/UL (0.1-1.30); MONOCYTES % (AUTO) 9.6 % (0.0-11.0); NEUTROPHILS % (AUTO) 66.3 % (38.5-71.5); PLATELET COUNT (AUTO) 185 K/UL (150-450); RED BLOOD CELL COUNT(AUTO) 4.53 MIL/UL (4.7-6.1); WHITE BLOOD COUNT (AUTO) 7.5 K/UL (4.0-11.2)
[2017-05-27] MEDS: VANCOMYCIN IV 1,250 MG in IV DEXTROSE 5% 500 ML IV SCH ×2 (10:00→21:09)
[2017-05-27] MEDS: INSULIN REGULAR, HUMAN 300 UNIT/3 ML VIAL SQ PRN ×2 (11:30→16:56)
[2017-05-27 12:14] VITALS: BP 134/89
--- NOTE | 2017-05-27 12:48 | NUR ---
Clinical pharmacy note-Vancomycin dosing per pharmacy Subjective: To continue Vancomycin dosing on this 57 year old male patient for sepsis, UTI Objective: BUN 7 Scr 0.8 WBC 7.5 Temp 98.3 Vancomycin trough level: 12.4 Ht 5'9" WB 169 lbs BC + MRSA Assessment/Plan: Since vanco trough is 12.4 mcg/ml & 1st set of BC is positive for MRSA, will change vanco dose from 1250mg IVPB q12h to 1250mg IVPB q11 hrs for predicted vancomycin trough level of 15 mcg/ml at steady state. 1st dose was due today at 1000. Plan to draw vancomycin trough level before 4th dose of current regimen (level not yet ordered). Will monitor renal function & adjust the dose if needed. Will continue to follow.
[2017-05-27 16:19] VITALS: BP 136/89
[2017-05-27 20:37] VITALS: BP 142/86
[2017-05-27] MEDS: TAMSULOSIN HCL 0.4 MG CAP.SR.24H PO SCH (20:57)
[2017-05-27] MEDS: INSULIN REGULAR, HUMAN 300 UNITS/3 ML VIAL SQ PRN (21:05)
[2017-05-27] MEDS: INSULIN DETEMIR 300 UNIT/3 ML CARTRIDGE SQ SCH (21:09)
[2017-05-28] MEDS: ONDANSETRON 4 MG/2 ML VIAL IV PRN ×2 (02:24→17:34)
[2017-05-28 04:13] VITALS: BP 144/92
[2017-05-28] MEDS: PANTOPRAZOLE SODIUM 40 MG TABLET.DR PO SCH (06:05)
[2017-05-28] MEDS: BLOOD SUGAR DIAGNOSTIC 1 EACH STRIP VI SCH ×4 (06:27→21:23)
[2017-05-28 07:38] LABS: BILIRUBIN,TOTAL 0.5 mg/dL (0.2-1.0); CREATININE 0.7 mg/dL (0.6-1.3); MAGNESIUM 1.8 mg/dL (1.8-2.4); PHOSPHOROUS 2.1 mg/dL (2.5-4.9); POTASSIUM 4.2 mmol/L (3.5-5.1); TOTAL PROTEIN, SERUM 5.4 g/dL (6.4-8.2)
[2017-05-28 07:59] LABS: BASOPHILS # (AUTO) 0.1 K/uL (0.0-8.0); BASOPHILS % (AUTO) 0.6 % (0.0-2.0); EOSINOPHILS # (AUTO) 0.5 K/uL (0.0-0.7); HEMATOCRIT 34.2 % (40-50); HEMOGLOBIN 11.2 G/DL (14.0-18.0); LYMPHOCYTES # (AUTO) 1.1 K/UL (0.8-4.8); LYMPHOCYTES % (AUTO) 11.5 % (20.5-51.5); MEAN CORPUSCULAR HEMOGLOBIN 27.1 UUG (27.0-31.0); MEAN CORPUSCULAR HGB CONC 33 g/dL (32.0-37.0); MEAN CORPUSCULAR VOLUME 82.6 FL (82.0-92.0); MONOCYTES # (AUTO) 0.6 K/UL (0.1-1.30); MONOCYTES % (AUTO) 6.9 % (0.0-11.0); NEUTROPHILS # (AUTO) 6.9 K/UL (1.8-8.9); PLATELET COUNT (AUTO) 178 K/UL (150-450); RED BLOOD CELL COUNT(AUTO) 4.14 MIL/UL (4.7-6.1); WHITE BLOOD COUNT (AUTO) 9.2 K/UL (4.0-11.2)
[2017-05-28] MEDS: chlorproMAZINE 25 MG TABLET PO SCH ×3 (08:27→17:03)
[2017-05-28] MEDS: FERROUS SULFATE 325 MG TABEC PO SCH (08:27)
[2017-05-28] MEDS: INSULIN REGULAR, HUMAN 300 UNIT/3 ML VIAL SQ PRN ×2 (08:27→11:52)
[2017-05-28] MEDS: LACTOBACILLUS RHAMNOSUS GG 1 EACH CAPSULE PO SCH ×2 (08:27→21:20)
[2017-05-28] MEDS: DOCUSATE SODIUM 100 MG CAPSULE PO SCH ×2 (08:27→21:20)
[2017-05-28] MEDS: VANCOMYCIN IV 1,250 MG in IV DEXTROSE 5% 500 ML IV SCH ×2 (08:28→21:22)
[2017-05-28] MEDS: METOPROLOL TARTRATE 25 MG TABLET PO SCH ×2 (08:36→21:21)
--- NOTE | 2017-05-28 09:40 | NUR ---
Clinical pharmacy note-Vancomycin dosing per pharmacy Subjective: To continue Vancomycin dosing on this 57 year old male patient for sepsis, UTI Objective: BUN 7 Scr 0.7 WBC 9.2 Temp 98.1 Ht 5'9" WB 169 lbs BC + MRSA Assessment/Plan: Will continue vanco dose of 1250mg IVPB q11 hrs for predicted vancomycin trough level of 15 mcg/ml at steady state. Plan to draw vancomycin trough level before 4th dose of current regimen which will be due today at 1830. Will check level today and adjust as accordingly. Will monitor renal function & adjust the dose if needed. Will continue to follow. Addendum: 05/28/17 at 1928 by MARTINEZ HARRISON ADM TROUGH VALUE - 14.8 WITHIN THERAPEUTIC RANGE WILL CONTINUE WITH CURRENT REGIMEN
[2017-05-28 12:05] VITALS: BP 134/86
[2017-05-28] MEDS ORDERED: TAMSULOSIN HCL 0.4 MG CAP.SR.24H PO ONE (14:30)
[2017-05-28] MEDS ORDERED: NEUTRA PHOS PACKET PO ONE (15:45)
[2017-05-28 16:31] VITALS: BP 131/86
[2017-05-28] MEDS: HYDROCODONE/APAP 5-325MG TABLET PO PRN (17:33)
[2017-05-28] MEDS: MAGNESIUM HYDROXIDE 30 ML LIQUID UDC PO PRN (17:34)
[2017-05-28 20:00] VITALS: BP 145/92
[2017-05-28] MEDS: ACETAMINOPHEN 325 MG TABLET PO PRN (21:20)
[2017-05-28] MEDS: TAMSULOSIN HCL 0.4 MG CAP.SR.24H PO SCH (21:21)
[2017-05-28] MEDS: INSULIN DETEMIR 300 UNIT/3 ML CARTRIDGE SQ SCH (21:31)
[2017-05-28] MEDS: INSULIN REGULAR, HUMAN 300 UNITS/3 ML VIAL SQ PRN (21:32)
[2017-05-28 22:41] LABS: *OCCULT BLOOD STOOL NEGATIVE (NEGATIVE)
[2017-05-29] MEDS: HYDROCODONE/APAP 5-325MG TABLET PO PRN ×2 (02:07→13:14)
[2017-05-29] MEDS: ONDANSETRON 4 MG/2 ML VIAL IV PRN ×2 (02:09→13:14)
[2017-05-29] MEDS: IV 1/2NS 1000 ML 1,000 ML IV PRN ×2 (02:10→15:28)
[2017-05-29 04:35] VITALS: BP 125/83
[2017-05-29] MEDS: VANCOMYCIN IV 1,250 MG in IV DEXTROSE 5% 500 ML IV SCH (05:09)
--- NOTE | 2017-05-29 05:38 | NUR ---
PT SLEPT INTERMITTENTLY, IN NO ACUTE DISTRESS. IVF RUNNING, NO INFILTRATION NOTED. ANTIBIOTICS IV ADMINISTERED ORDERED, NO ADVERSE REACTION NOTED. MCGILL CATH INTACT/PATENT, DRAINING CLEAR, YELLOW URINE, URINE OUTPUT FOR 12 HR SHIFT TOTALED 3,350. PATIENT STATED HE HAD A BOWEL MOVEMENT DURING THE DAY 05/28/17, STOOL FORMED, HARD, MEDIUM SIZE. PT HAS OCCASIONAL HICCUPS. SAFETY MEASURES IN PLACE, CALL LIGHT WITHIN REACH, BED ALARM ON. WILL CONTINUE TO MONITOR.
[2017-05-29] MEDS: PANTOPRAZOLE SODIUM 40 MG TABLET.DR PO SCH (06:01)
[2017-05-29] MEDS: BLOOD SUGAR DIAGNOSTIC 1 EACH STRIP VI SCH ×3 (06:35→16:59)
--- NOTE | 2017-05-29 06:36 | NUR ---
PT ATE SNACKS, SUGARFREE JELLO AND PUDDING.
[2017-05-29 06:49] LABS: CREATININE 0.8 mg/dL (0.6-1.3); PHOSPHOROUS 2.7 mg/dL (2.5-4.9); POTASSIUM 4.2 mmol/L (3.5-5.1)
[2017-05-29 08:36] LABS: BASOPHILS # (AUTO) 0.1 K/uL (0.0-8.0); BASOPHILS % (AUTO) 0.7 % (0.0-2.0); EOSINOPHILS # (AUTO) 0.4 K/uL (0.0-0.7); EOSINOPHILS % (AUTO) 5.4 % (0.0-7.0); HEMATOCRIT 33.4 % (40-50); HEMOGLOBIN 11.3 G/DL (14.0-18.0); LYMPHOCYTES # (AUTO) 1.2 K/UL (0.8-4.8); LYMPHOCYTES % (AUTO) 16.2 % (20.5-51.5); MEAN CORPUSCULAR HEMOGLOBIN 27.5 UUG (27.0-31.0); MEAN CORPUSCULAR HGB CONC 34 g/dL (32.0-37.0); MEAN CORPUSCULAR VOLUME 81.2 FL (82.0-92.0); MONOCYTES # (AUTO) 0.5 K/UL (0.1-1.30); MONOCYTES % (AUTO) 6.7 % (0.0-11.0); NEUTROPHILS # (AUTO) 5.5 K/UL (1.8-8.9); PLATELET COUNT (AUTO) 202 K/UL (150-450); RED BLOOD CELL COUNT(AUTO) 4.11 MIL/UL (4.7-6.1); WHITE BLOOD COUNT (AUTO) 7.7 K/UL (4.0-11.2)
[2017-05-29 08:40] LABS: CREATININE 2.3 mg/dL (0.6-1.3); POTASSIUM 4.1 mmol/L (3.5-5.1)
[2017-05-29 08:46] LABS: BILIRUBIN,TOTAL 0.5 mg/dL (0.2-1.0); MAGNESIUM 2.1 mg/dL (1.8-2.4); PHOSPHOROUS 3.3 mg/dL (2.5-4.9); TOTAL PROTEIN, SERUM 6.2 g/dL (6.4-8.2)
[2017-05-29] MEDS: LACTOBACILLUS RHAMNOSUS GG 1 EACH CAPSULE PO SCH ×2 (10:47→20:35)
[2017-05-29] MEDS: DOCUSATE SODIUM 100 MG CAPSULE PO SCH ×2 (10:47→20:35)
[2017-05-29] MEDS: METOPROLOL TARTRATE 25 MG TABLET PO SCH ×2 (10:48→20:36)
[2017-05-29] MEDS: FERROUS SULFATE 325 MG TABEC PO SCH (10:48)
[2017-05-29] MEDS: chlorproMAZINE 25 MG TABLET PO SCH ×3 (10:48→17:36)
[2017-05-29 11:23] VITALS: BP 157/96
[2017-05-29 12:00] LABS: CREATININE 0.7 mg/dL (0.6-1.3); POTASSIUM 4.2 mmol/L (3.5-5.1)
[2017-05-29] MEDS: INSULIN REGULAR, HUMAN 300 UNIT/3 ML VIAL SQ PRN ×2 (13:07→17:35)
[2017-05-29 15:09] VITALS: BP 127/77
--- NOTE | 2017-05-29 19:30 | NUR ---
RECEIVED PATIENT LAYING IN BED COMFORTABLY. A&O X'S 4. ABLE TO MAKE NEEDS KNOWN. ROOM AIR. BODY ASSESSMENT DONE. NOTED BLISTER LIKE WOUND ON THE RIGHT KNEE. SAFETY INITIATED. CALL LIGHT WITHIN REACH. WILL CONTINUE TO MONITOR.
[2017-05-29 20:00] VITALS: BP 134/91
[2017-05-29] MEDS: TAMSULOSIN HCL 0.4 MG CAP.SR.24H PO SCH (20:35)
[2017-05-29] MEDS: LINEZOLID IV 600 MG in PREMIXED 1 EACH IV SCH (20:35)
[2017-05-29] MEDS: INSULIN REGULAR, HUMAN 300 UNITS/3 ML VIAL SQ PRN (20:44)
[2017-05-29] MEDS: INSULIN DETEMIR 300 UNIT/3 ML CARTRIDGE SQ SCH (20:45)
[2017-05-30] MEDS: BLOOD SUGAR DIAGNOSTIC 1 EACH STRIP VI SCH ×4 (00:11→20:30)
[2017-05-30] MEDS: IV 1/2NS 1000 ML 1,000 ML IV PRN ×2 (03:15→20:46)
[2017-05-30 04:22] VITALS: BP 146/89
[2017-05-30] MEDS: PANTOPRAZOLE SODIUM 40 MG TABLET.DR PO SCH (06:41)
[2017-05-30 06:58] LABS: BILIRUBIN,TOTAL 0.5 mg/dL (0.2-1.0); CREATININE 0.8 mg/dL (0.6-1.3); MAGNESIUM 1.8 mg/dL (1.8-2.4); PHOSPHOROUS 3.3 mg/dL (2.5-4.9); TOTAL PROTEIN, SERUM 5.9 g/dL (6.4-8.2)
--- NOTE | 2017-05-30 07:18 | NUR ---
PATIENT SLEPT INTERMITTENTLY T/O SHIFT. NO ACUTE DISTRESS NOTED. NO CHANGES T/O SHIFT. SAFETY AND COMFORT MAINTAINED T/O SHIFT. STARTED NEW IV ON THE RIGHT AC #20. PATIENT HAD 1 SUCCESSFUL BM DURING MY SHIFT. MCGILL CATH CARE PROVIDED. ALL MEDS GIVEN ORDERED. ALL NEEDS MET.
--- NOTE | 2017-05-30 07:45 | NUR ---
RESTING IN BED, MCGILL DRAINING CLEAR KAREN URINE, NO SIGNS OF PAIN OR DISTRESS CONTINUE CURRENT TX PLAN IVF AND IV ANTIBIOTICS, ISOLATION PRECAUTION.
[2017-05-30] MEDS: INSULIN REGULAR, HUMAN 300 UNIT/3 ML VIAL SQ PRN ×3 (07:59→20:34)
[2017-05-30] MEDS: FERROUS SULFATE 325 MG TABEC PO SCH (08:50)
[2017-05-30] MEDS: LACTOBACILLUS RHAMNOSUS GG 1 EACH CAPSULE PO SCH ×2 (08:50→20:27)
[2017-05-30] MEDS: DOCUSATE SODIUM 100 MG CAPSULE PO SCH ×2 (08:50→20:27)
[2017-05-30] MEDS: LINEZOLID IV 600 MG in PREMIXED 1 EACH IV SCH (08:50)
[2017-05-30] MEDS: chlorproMAZINE 25 MG TABLET PO SCH ×3 (08:50→17:00)
[2017-05-30 08:51] LABS: BASOPHILS % (AUTO) 0.1 % (0.0-2.0); EOSINOPHILS # (AUTO) 0.5 K/uL (0.0-0.7); EOSINOPHILS % (AUTO) 6.5 % (0.0-7.0); HEMATOCRIT 34.9 % (40-50); HEMOGLOBIN 11.7 G/DL (14.0-18.0); LYMPHOCYTES # (AUTO) 1.2 K/UL (0.8-4.8); MEAN CORPUSCULAR HEMOGLOBIN 27.5 UUG (27.0-31.0); MEAN CORPUSCULAR HGB CONC 34 g/dL (32.0-37.0); MEAN CORPUSCULAR VOLUME 81.9 FL (82.0-92.0); MONOCYTES # (AUTO) 0.5 K/UL (0.1-1.30); MONOCYTES % (AUTO) 5.6 % (0.0-11.0); NEUTROPHILS # (AUTO) 5.9 K/UL (1.8-8.9); NEUTROPHILS % (AUTO) 72.8 % (38.5-71.5); PLATELET COUNT (AUTO) 228 K/UL (150-450); RED BLOOD CELL COUNT(AUTO) 4.26 MIL/UL (4.7-6.1); WHITE BLOOD COUNT (AUTO) 8.1 K/UL (4.0-11.2)
[2017-05-30] MEDS: METOPROLOL TARTRATE 25 MG TABLET PO SCH ×2 (08:52→20:29)
--- NOTE | 2017-05-30 11:10 | NUR ---
CALLED AND LEFT MESSAGE FOR NIRMALA, PICC LINE NURSE.
[2017-05-30] MEDS ORDERED: RXVAN XX ×2 (11:53→12:21)
[2017-05-30] MEDS ORDERED: TAMS-3 PO (11:53)
[2017-05-30] MEDS ORDERED: Blood Sugar Diagnostic VI ×2 (11:53→12:19)
[2017-05-30] MEDS ORDERED: ACET325T53 PO (11:53)
[2017-05-30] MEDS ORDERED: INSU100I19 SQ ×2 (11:53→12:19)
[2017-05-30] MEDS ORDERED: FERR325T28 PO (11:53)
[2017-05-30] MEDS ORDERED: LACT1CAP57 PO (11:53)
[2017-05-30] MEDS ORDERED: METO25TA6 PO (11:53)
[2017-05-30] MEDS ORDERED: HYDR-3326 PO (11:53)
[2017-05-30] MEDS ORDERED: DOCU100C36 PO (11:53)
[2017-05-30 11:55] VITALS: BP 136/84
[2017-05-30] MEDS ORDERED: DEXTROSE 50% 50 ML DISP.SYRIN IV PRN (12:00)
[2017-05-30] MEDS ORDERED: INSU100V28 SQ (12:19)
[2017-05-30 15:30] VITALS: BP 149/92
--- NOTE | 2017-05-30 16:38 | NUR ---
Clinical pharmacy note-Vancomycin dosing per pharmacy Subjective: To continue Vancomycin dosing on this 57 year old male patient for sepsis, UTI (until 06/10) Objective: BUN 11 Scr 0.8 WBC 8.1 Temp 97.7 Ht 5'9" WB 169 lbs BC + MRSA Assessment/Plan: Will continue re-start same dose of vanco dose of 1250mg IVPB q11 hrs for predicted vancomycin trough level of 15 mcg/ml at steady state. 1st dose is due today at 2000 (got zyvox this am at 0900). Plan to draw vancomycin trough level before 4th dose of current regimen (level not yet ordered). Will monitor renal function & adjust the dose if needed. Will continue to follow.
--- NOTE | 2017-05-30 19:30 | NUR ---
NO CHANGES NOTED. ALL SAFETY NEEDS ARE MET.
--- NOTE | 2017-05-30 19:30 | NUR ---
RECEIVED PATIENT LAYING COMFORTABLY IN THE BED. HOB ELEVATED. A&O X'S 4. MCGILL IN PLACE. PICC LINE ON THE RIGHT UPPER ARM PATENT AND INTACT. BODY ASSESSMENT DONE. NOTED RED BLISTER LIKE ON THE RIGHT KNEE. SAFETY INITIATED. CALL LIGHT WITHIN REACH. WILL REVIEW MEDICATIONS, WILL GIVE ORDERED. WILL CONTINUE TO MONITOR.
[2017-05-30 20:00] VITALS: BP 167/96
[2017-05-30] MEDS: TAMSULOSIN HCL 0.4 MG CAP.SR.24H PO SCH (20:27)
[2017-05-30] MEDS: VANCOMYCIN IV 1,250 MG in IV DEXTROSE 5% 500 ML IV SCH (20:44)
[2017-05-30] MEDS ORDERED: INSULIN DETEMIR 300 UNIT/3 ML CARTRIDGE SQ SCH ×2 (21:00)
[2017-05-31] MEDS: ACETAMINOPHEN 325 MG TABLET PO PRN (01:33)
[2017-05-31 04:46] VITALS: BP 156/96
[2017-05-31] MEDS: METOPROLOL TARTRATE 25 MG TABLET PO SCH (04:46)
--- NOTE | 2017-05-31 04:55 | NUR ---
GAVE B/P MEDICATION LOPRESSOR EARLY BECAUSE B/P WAS RUNNING HIGH. TAKEN 3 TIMES. IT WAS RUNNING IN THE HIGH 150'S/90'S. LAST B/P WAS 156/96 HR 72. WILL RE-CHECK B/P. WILL CONTINUE TO MONITOR.
[2017-05-31] MEDS: BLOOD SUGAR DIAGNOSTIC 1 EACH STRIP VI SCH ×3 (06:04→16:14)
[2017-05-31] MEDS: PANTOPRAZOLE SODIUM 40 MG TABLET.DR PO SCH (06:04)
[2017-05-31] MEDS: VANCOMYCIN IV 1,250 MG in IV DEXTROSE 5% 500 ML IV SCH ×2 (06:04→16:14)
--- NOTE | 2017-05-31 07:30 | NUR ---
SLIGHT INCREASE OF B/P DURING THE 0400 V/S. GAVE EARLY DOSE OF LOPRESSOR. B/P WNL NOW. NO ACUTE DISTRESS NOTED. SLEPT INTERMITTENTLY. PICC LINE ON THE RIGHT UPPER ARM IS PATENT AND INTACT. MCGILL CARE PROVIDED. MCGILL IS IN PLACE AND IS PATENT. SAFETY AND COMFORT MEASURES MAINTAINED T/O SHIFT. ALL NEEDS MET.
[2017-05-31] MEDS: DOCUSATE SODIUM 100 MG CAPSULE PO SCH (09:00)
[2017-05-31] MEDS: chlorproMAZINE 25 MG TABLET PO SCH ×3 (09:00→16:14)
[2017-05-31] MEDS: LACTOBACILLUS RHAMNOSUS GG 1 EACH CAPSULE PO SCH (09:09)
[2017-05-31] MEDS: FERROUS SULFATE 325 MG TABEC PO SCH (09:09)
[2017-05-31] MEDS ORDERED: hydrALAZINE HCL 25 MG TABLET PO PRN (10:00)
[2017-05-31 11:30] VITALS: BP 129/89
[2017-05-31] MEDS: IV 1/2NS 1000 ML 1,000 ML IV PRN (12:01)
[2017-05-31] MEDS: INSULIN REGULAR, HUMAN 300 UNIT/3 ML VIAL SQ PRN ×2 (12:09→16:16)
[2017-05-31 12:35] LABS: BASOPHILS % (AUTO) 0.4 % (0.0-2.0); EOSINOPHILS # (AUTO) 0.4 K/uL (0.0-0.7); EOSINOPHILS % (AUTO) 5.1 % (0.0-7.0); HEMATOCRIT 36.5 % (40-50); LYMPHOCYTES # (AUTO) 0.9 K/UL (0.8-4.8); LYMPHOCYTES % (AUTO) 11.5 % (20.5-51.5); MEAN CORPUSCULAR HEMOGLOBIN 26.8 UUG (27.0-31.0); MEAN CORPUSCULAR HGB CONC 33 g/dL (32.0-37.0); MEAN CORPUSCULAR VOLUME 81.2 FL (82.0-92.0); MONOCYTES # (AUTO) 0.4 K/UL (0.1-1.30); MONOCYTES % (AUTO) 5.2 % (0.0-11.0); NEUTROPHILS # (AUTO) 6.5 K/UL (1.8-8.9); NEUTROPHILS % (AUTO) 77.8 % (38.5-71.5); PLATELET COUNT (AUTO) 266 K/UL (150-450); RED BLOOD CELL COUNT(AUTO) 4.49 MIL/UL (4.7-6.1); WHITE BLOOD COUNT (AUTO) 8.2 K/UL (4.0-11.2)
[2017-05-31 12:44] LABS: CREATININE 0.9 mg/dL (0.6-1.3)
--- NOTE | 2017-05-31 15:04 | NUR ---
Clinical pharmacy note-Vancomycin dosing per pharmacy Subjective: To continue Vancomycin dosing on this 57 year old male patient for sepsis, UTI (until 06/10) Objective: BUN 11 (05/30) Scr 0.8 (05/30) WBC 8.1 (05/30) Temp 98.4 Ht 5'9" WB 169 lbs BC + MRSA Assessment/Plan: Will continue vanco dose of 1250mg IVPB q11 hrs for predicted vancomycin trough level of 15 mcg/ml at steady state. Plan to draw vancomycin trough level before 4th dose of current regimen (ordered and due tomorrow @0430). RN endorsed to hold dose if trough >20. Will check trough in am and adjust as appropriate. Will monitor renal function & adjust the dose if needed. Will continue to follow.
--- NOTE | 2017-05-31 15:29 | NUR ---
The patient will be discharged today back home [[id number], [place] [address]] per Jennifer Elizabeth. [facility] [ ; ; Contact - Rogelio] will deliver the antibiotics. 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 They will make an appointment with a PCP and follow-up with a urologist. His RN, Destiny, is aware of his discharge plan. His will be picking him up via private car.
[2017-05-31 16:08] VITALS: BP 150/96
--- NOTE | 2017-05-31 19:23 | NUR ---
discharge note: no s/s of respiratory distress noted. all safety needs are met. no pain noted. pt is d/c with stover and picc line per dr/'s order. no s/s of bleeding. pt left the hospital via private car with his .
== END 2017-05-31 19:20 | disposition home health service (06) | DRG 720 ==
LOC: ER 18:37 → TELE 21:10 → MED 05-24 18:25
PROVIDERS: ADMIT Internal Medicine; ATTEND Internal Medicine
PROC: 0T9B70Z Drainage of Bladder with Drainage Device, Via Natural or Artificial Opening (ICD-10-PCS; principal; 2017-05-23)
PROC: 02HV33Z Insertion of Infusion Device into Superior Vena Cava, Percutaneous Approach (ICD-10-PCS; 2017-05-30)
DX: A41.02 Sepsis due to Methicillin resistant Staphylococcus aureus (principal); N17.9 Acute kidney failure, unspecified; D68.9 Coagulation defect, unspecified; E87.2 Acidosis; E11.21 Type 2 diabetes mellitus with diabetic nephropathy; E11.65 Type 2 diabetes mellitus with hyperglycemia; R17 Unspecified jaundice; N13.8 Other obstructive and reflux uropathy; N13.6 Pyonephrosis; Z79.84 Long term (current) use of oral hypoglycemic drugs; E87.1 Hypo-osmolality and hyponatremia; Z87.891 Personal history of nicotine dependence; Z90.49 Acquired absence of other specified parts of digestive tract; N40.1 Benign prostatic hyperplasia with lower urinary tract symptoms; K59.00 Constipation, unspecified; K44.9 Diaphragmatic hernia without obstruction or gangrene; M43.06 Spondylolysis, lumbar region; E83.42 Hypomagnesemia; E83.39 Other disorders of phosphorus metabolism; D63.8 Anemia in other chronic diseases classified elsewhere; I12.9 Hypertensive chronic kidney disease with stage 1 through stage 4 chronic kidney disease, or unspecified chronic kidney disease; N18.9 Chronic kidney disease, unspecified; N20.0 Calculus of kidney; I71.9 Aortic aneurysm of unspecified site, without rupture; R06.6 Hiccough; I08.2 Rheumatic disorders of both aortic and tricuspid valves
CPT/HCPCS: 36415; 51702; 70030-TC; 71010; 76770; 83550; 83605; 83690; 83735; 84100; 84153; 84156; 84300; 84443; 85025; 85610; 87040; 87077; 87086; 93005; 93307; 97116; 97161; 97530; A4663; C1751; J0696; J1170; J1580; J1815; J2020; J2270; J2405; J3370; J3475; J3490; J7030; J7060; Q0161

== ENCOUNTER → 2017-06-04 | Emergency (ER) | payer OTHER ==
[~2017-06-04] MED LIST changes: +ACET325T53 PO; -AMLO5TAB2 PO; -ASCO500T9 PO; +Blood Sugar Diagnostic VI; -CADE40GE2 TOP; +DOCU100C36 PO; +FERR325T28 PO; -GLIP5TAB13 PO; +HYDR-3326 PO; +INSU100I19 SQ; +INSU100V28 SQ; +LACT1CAP57 PO; +METO25TA6 PO; -Metformin Hcl PO; -PANT40TA2 PO; -SITA50TA PO; -Silver Sulfadiazine TP; +TAMS-3 PO; -ZINC220C8 PO
--- NOTE | 2017-06-04 12:34 | NUR ---
PT HERE FOR BLOOD DRAW AND NOT TO BE SEEN IN ER. REFERRED TO TAI FROM THE LAB.
== END | disposition left against medical advice (07) ==
LOC: ER 12:17
DX: Z53.21 Procedure and treatment not carried out due to patient leaving prior to being seen by health care provider (principal)

== ENCOUNTER 2017-06-06 13:11 | Outpatient (CLI) | payer OTHER ==
[2017-06-04 13:40] LABS: BASOPHILS # (AUTO) 0.1 K/uL (0.0-8.0); BASOPHILS % (AUTO) 0.6 % (0.0-2.0); EOSINOPHILS # (AUTO) 0.7 K/uL (0.0-0.7); EOSINOPHILS % (AUTO) 6.7 % (0.0-7.0); HEMATOCRIT 39.2 % (40-50); HEMOGLOBIN 13.4 G/DL (14.0-18.0); LYMPHOCYTES # (AUTO) 1.3 K/UL (0.8-4.8); LYMPHOCYTES % (AUTO) 12.6 % (20.5-51.5); MEAN CORPUSCULAR HEMOGLOBIN 27.8 UUG (27.0-31.0); MEAN CORPUSCULAR HGB CONC 34 g/dL (32.0-37.0); MEAN CORPUSCULAR VOLUME 81.7 FL (82.0-92.0); MONOCYTES # (AUTO) 0.5 K/UL (0.1-1.30); MONOCYTES % (AUTO) 4.9 % (0.0-11.0); NEUTROPHILS # (AUTO) 7.4 K/UL (1.8-8.9); NEUTROPHILS % (AUTO) 75.2 % (38.5-71.5); PLATELET COUNT (AUTO) 280 K/UL (150-450)
[2017-06-04 13:47] LABS: BILIRUBIN,TOTAL 0.9 mg/dL (0.2-1.0); POTASSIUM 4.5 mmol/L (3.5-5.1); VANCOMYCIN,RANDOM 29.3 ug/mL (18.0-26.0)
== END 2017-06-06 23:59 | disposition home or self-care (01) ==
LOC: LAB 13:11
PROVIDERS: ATTEND Nurse Practitioner Acute Care
DX: N39.0 Urinary tract infection, site not specified (principal)
CPT/HCPCS: 36415; 85025